=== PATIENT | male | born 1960 | race Caucasian/White ===

== ENCOUNTER 2018-08-07 05:37 | Day surgery (SDC) | payer SELFPAY ==
[2018-08-05 12:03] LABS: BASOPHILS % (AUTO) 0.6 % (0-1); EOSINOPHILS # (AUTO) 0.1 X10'3 (0-0.9); EOSINOPHILS % (AUTO) 1.2 % (0-6); LYMPHOCYTES # (AUTO) 1.7 X10'3 (1.1-4.8); LYMPHOCYTES % (AUTO) 25.2 % (21-51); MEAN CORPUSCULAR HEMOGLOBIN 31.7 PG (27.0-31.0); MEAN CORPUSCULAR HGB CONC 34.8 g/dL (33.0-36.5); MEAN PLATELET VOLUME 7.5 FL (7.4-10.4); MONOCYTES # (AUTO) 0.7 X10'3 (0-0.9); MONOCYTES % (AUTO) 9.8 % (2-12); NEUTROPHILS # (AUTO) 4.4 X10'3 (1.8-7.7); NEUTROPHILS % (AUTO) 63.2 % (42-75); PRE OP HEMATOCRIT 41.4 % (42.0-52.0); PRE OP HEMOGLOBIN 14.4 g/dL (14.0-17.9); PRE OP PLATELET COUNT 296 X10'3 (140-440); RED BLOOD COUNT 4.55 X10'6 (4.70-6.10); RED CELL DISTRIBUTION WIDTH 13.3 % (11.5-14.5)
[2018-08-05 12:23] LABS: ALBUMIN/GLOBULIN RATIO 1.2 (1.1-1.5); ALKALINE PHOSPHATASE 70 IU/L (46-116); BLOOD UREA NITROGEN 21 MG/DL (7-18); BUN/CREATININE RATIO 26.3 (5.4-32.0); CALCIUM 8.7 MG/DL (8.5-10.1); CHLORIDE 106 MMOL/L (99-107); PRE OP ANION GAP 10 (8-16); PRE OP AST 34 U/L (10-37); PRE OP BILIRUB, TOTAL 0.4 MG/DL (0.0-1.0); PRE OP GLUCOSE 125 MG/DL (70-104); PRE OP POTASSIUM 4.1 MMOL/L (3.4-5.1); PRE OP SODIUM 140 MMOL/L (135-145); TOTAL CARBON DIOXIDE 24.4 MMOL/L (24-32); TOTAL PROTEIN 7.3 G/DL (6.4-8.2); eGFR > 90 ML/MIN
[2018-08-05 12:27] LABS: PRE OP ALT 81 U/L (30-65)
[~2018-08-07] VITALS: Ht 175.3 cm; Wt 106.6 kg
[~2018-08-07 05:37] MED LIST: ALBU18HF2 INH; ASPI-1265 PO; ATOR40TA72 PO; COLC0.6T69 PO; HYDR-3973 PO; LISI-604 PO; MELO-102 PO; ceFAZolin 2gm in dextrose, iso 100 ML IV ONE; famotidine 20mg tablet PO ONE; ringers solution, lacted 1,000 ML IV SCH
[2018-08-07 05:45] VITALS: BP 112/72
[2018-08-07] MEDS ORDERED: LIDOcaine 1% (10mg/ml) 2ml vial ONE (06:14)
[2018-08-07] MEDS ORDERED: BUPIVAcaine/PF 2.5mg/ml (0.25%) 10ml vial ONE (06:45)
[2018-08-07] MEDS ORDERED: sevoflurane 250ml liquid IH ONE (07:41)
[2018-08-07] MEDS ORDERED: fentaNYL/PF 50MCG/1 ML 2ML syringe ONE ×2 (07:44→07:59)
[2018-08-07] MEDS ORDERED: midazolam 2 mg/2 ml injection ONE (07:45)
[2018-08-07] MEDS ORDERED: ePHEDrine 50MG/ML INJ. ONE (08:12)
[2018-08-07] MEDS ORDERED: propofol inj 20 ML IV ONE (08:12)
[2018-08-07] MEDS ORDERED: LIDOcaine 2% (20mg/ml) 5ml vial ONE (08:12)
[2018-08-07] MEDS ORDERED: ondansetron/PF 4mg/2ml inj ONE (08:12)
[2018-08-07 08:27] VITALS: BP 92/57
--- NOTE | 2018-08-07 08:27 | NUR ---
Received from OR via [facility] , accompanied by Anesthesiologist JUANCARLOS and report given by Anesthesiolgist. PATIENT WITH 20G PIV IN LEFT UE AND A WRIST DRESSING TO B WRIST. + CAP REFILL AND SENSATIONS. VSS. LMA REMOVED SHORTLY AFTER ARRIVAL. Addendum: 08/07/18 at 0840 by French Ibarra RN, RN Amended: Links added.
[2018-08-07] MEDS ORDERED: meperidine/PF 25mg/ml syringe IV PRN ×3 (08:30)
[2018-08-07] MEDS ORDERED: ondansetron/PF 4mg/2ml inj IV PRN (08:30)
[2018-08-07] MEDS ORDERED: proCHLORperazine 10 MG/2 ml inj IV PRN (08:30)
[2018-08-07] MEDS ORDERED: morphine 4 MG/ML inj SYRINge IV PRN ×2 (08:30)
[2018-08-07] MEDS ORDERED: ringers solution, lacted 1,000 ML IV SCH (08:30)
[2018-08-07 08:37] VITALS: BP 107/64
[2018-08-07 08:47] VITALS: BP 103/62
[2018-08-07 08:57] VITALS: BP 103/68
[2018-08-07 09:07] VITALS: BP 110/70
--- NOTE | 2018-08-07 09:17 | NUR ---
ALL DC CRITERIA HAS BEEN MET. IV TAKEN OUT WITHOUT COMPLICATIONS. ALL INSTRUCTIONS COVERED AND ALL QUESTIONS ANSWERED. DRESSINGS CDI. OUT VIA WHEELCHAIR TO PERSONAL VEHICLE WHERE PATIENT WAS SECURED IN AND DRIVEN HOME BY FAMILY. BILAT WRIST DRESSINGS CDI. PAIN CONTROLLED. OUT AND HOME WITH . Addendum: 08/07/18 at 0931 by French Ibarra RN, RN Amended: Links added.
== END 2018-08-07 09:17 | disposition home or self-care (01) ==
LOC: PAS 05:37
PROVIDERS: ATTEND Orthopaedic Surgery Hand Surgery
DX: G56.03 Carpal tunnel syndrome, bilateral upper limbs (principal); M19.90 Unspecified osteoarthritis, unspecified site; Z82.49 Family history of ischemic heart disease and other diseases of the circulatory system; Z72.89 Other problems related to lifestyle; Z98.890 Other specified postprocedural states; J45.909 Unspecified asthma, uncomplicated
CPT/HCPCS: 29848; 36415; 64721; 80053; 82948; 85025; 93005; A6222; J0690; J2001; J2250; J2405; J2704; J3010; J3490; A6449; A7000; J7120